=== PATIENT | female | born 1930 | race Hispanic/Latino ===

== ENCOUNTER 2017-10-27 15:11 | Outpatient (CLI) | payer MEDICARE, OTHER ==
--- NOTE | 2017-10-27 16:24 | XRay Report ---
PA and lateral chest: Cough. 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 There is a consolidation in the posterior left lung base and possible small effusion. No prior exams for comparison. Impression: Findings consistent with left lower lobe pneumonia. The attending office physician has has been notified of this finding.
== END 2017-10-27 15:12 | disposition home or self-care (01) ==
LOC: SPVIMAG 15:11
PROVIDERS: ATTEND Internal Medicine
DX: R05 Cough (principal)
CPT/HCPCS: 71046